=== PATIENT | male | born 1990 ===

== ENCOUNTER 2016-06-12 13:42 | Emergency (ER) | payer OTHER ==
[2016-06-12 14:16] VITALS: BP 117/76
--- NOTE | 2016-06-12 17:40 | Emergency Department Report ---
HPI - General Chief Complaint: Extremity Injury, Lower Time Seen by Provider: 06/12/16 17:30 - HPI HPI: 25-year-old male presents today with left foot and ankle pain and swelling 5 days. Patient states that he fell going Tears and sprained it. Describes his pain as 7 out of 10 constant, throbbing pain. He is unable to ambulate at this time. Denies numbness, weakness, paresthesias. Tried Goody powder and Epsom salts with some relief. Denies fever, chills, nausea, vomiting, chest pain, shortness of breath, abdominal pain. ED Past Medical Hx - Past Medical History Previous Medical History?: Yes Additional medical history: left ankle - Surgical History Past Surgical History?: No - Social History Smoking Status: Never Smoker Substance Use Type: Alcohol - Medications Home Medications: Home Medications Medication Instructions Recorded Confirmed Last Taken Type HYDROcodone/APAP 5-325 [Wiseman 1 each PO Q6HR PRN #20 tablet 06/12/16 Unknown Rx 5/325] Ibuprofen [Motrin 600 MG tab] 600 mg PO Q8H PRN #30 tablet 06/12/16 Unknown Rx ED Review of Systems ROS: Stated complaint: SWOLLEN LEFT ANKLE /FALL Other details as noted in HPI Constitutional: denies: chills, fever, malaise Eyes: denies: eye pain ENT: denies: ear pain, throat pain, congestion Respiratory: denies: cough, shortness of breath, wheezing Cardiovascular: denies: chest pain, palpitations Endocrine: no symptoms reported Gastrointestinal: denies: abdominal pain, nausea, vomiting Musculoskeletal: joint swelling, arthralgia Neurological: denies: headache, weakness, numbness, paresthesias Physical Exam - Physical Exam Vital Signs: Vital Signs 06/12/16 14:13 Temperature 98.1 F Pulse Rate 66 Respiratory 20 Rate Blood Pressure 117/76 O2 Sat by Pulse 96 Oximetry Physical Exam: GENERAL: The patient is well-developed and well-nourished. Patient is in NAD. HEAD: Normocephalic. Atraumatic. CHEST/LUNGS: Clear to auscultation throughout. HEART/CARDIOVASCULAR: Regular rate and rhythm. No murmurs, rubs or gallops. ABDOMEN: Abdomen is soft, nontender. Bowel sounds normoactive. No guarding or rebound tenderness. LEFT FOOT/ANKLE: Tenderness to palpation over the lateral aspect of left ankle. Positive for edema. No deformity or crepitus noted. Normal sensation. Peripheral pulses intact. Capillary refill less than 2 seconds. NEURO: Alert and oriented x 3. ED Course Vital Signs 06/12/16 14:13 Temperature 98.1 F Pulse Rate 66 Respiratory 20 Rate Blood Pressure 117/76 O2 Sat by Pulse 96 Oximetry ED Medical Decision Making - Lab Data Vital Signs 06/12/16 14:13 Temperature 98.1 F Pulse Rate 66 Respiratory 20 Rate Blood Pressure 117/76 O2 Sat by Pulse 96 Oximetry - Radiology Data Radiology results: report reviewed PROCEDURE: XR ANKLE 3 LT TECHNIQUE: LEFT ankle radiographs, AP, lateral, and oblique views. CPT 69779 HISTORY: Pain post fall. COMPARISON: No prior studies are available for comparison. FINDINGS: Fracture (s) and/or Dislocation(s): Subtle lucency through the distal fibula. Best seen on lateral view is a mildly displaced fracture through the posterior tibia. Alignment: Normal. Joint space(s): Medial clear space appears slightly widened. Suspect small joint effusion. Soft tissues: Moderate overlying soft tissue swelling. Bone mineralization: Normal. Foreign bodies: None. Calcaneal spurring: None. IMPRESSION: Mildly displaced distal fibular and posterior tibial posttraumatic fractures. Associated moderate overlying soft tissue swelling. Mild widening of the medial clear space, consider ligamentous injury. Consider MRI for further characterization if there is continued clinical concern and patient has no contraindication to MRI.. - Medical Decision Making 25-year-old male presents today with left foot and ankle pain and swelling 5 days post fall. His x-ray results revealed mildly displaced distal fibular and posterior tibial post traumatic fractures. Patient's foot will be put in a posterior ankle splint and he will be provided with a referral for orthopedic. Patient is in no acute distress at this time. She will be discharged home and is encouraged to follow up with a primary care provider. He will be sent home on Wiseman and ibuprofen and is encouraged to return to the emergency room for any worsening symptoms. Critical care attestation.: If time is entered above; I have spent that time in minutes in the direct care of this critically ill patient, excluding procedure time. ED Disposition Clinical Impression: Fracture of distal end of fibula Qualifiers: Encounter type: initial encounter Fracture type: closed Fracture morphology: unspecified fracture morphology Laterality: left Qualified Code(s): S82.832A - Other fracture of upper and lower end of left fibula, initial encounter for closed fracture Tibial fracture Qualifiers: Encounter type: initial encounter Tibia location: distal Fracture type: closed Fracture morphology: other fracture Laterality: left Qualified Code(s): S82.392A - Other fracture of lower end of left tibia, initial encounter for closed fracture Disposition: DISCHARGED TO HOME OR SELFCARE Is pt being admited?: No Does the pt Need Aspirin: No Condition: Stable Instructions: Ankle Fracture (ED), Leg Fracture (ED) Additional Instructions: Follow-up with primary care provider and orthopedic. Return to the emergency department if symptoms worsen. Prescriptions: HYDROcodone/APAP 5-325 [Wiseman 5/325] 1 each PO Q6HR PRN #20 tablet PRN Reason: Pain Ibuprofen [Motrin 600 MG tab] 600 mg PO Q8H PRN #30 tablet PRN Reason: Pain Referrals: PRIMARY MD SHAHRZAD [Primary Care Provider] - 3-5 Days CHRISTIAN DAVID MD [Staff Physician] - 3-5 Days Forms: Work/School Release Form(ED) Time of Disposition: 19:07
--- NOTE | 2016-06-12 18:48 | XRay Report ---
FINAL REPORT PROCEDURE: XR ANKLE 3 LT TECHNIQUE: LEFT ankle radiographs, AP, lateral, and oblique views. CPT 45092 HISTORY: Pain post fall. COMPARISON: No prior studies are available for comparison. FINDINGS: Fracture (s) and/or Dislocation(s): Subtle lucency through the distal fibula. Best seen on lateral view is a mildly displaced fracture through the posterior tibia. Alignment: Normal. Joint space(s): Medial clear space appears slightly widened. Suspect small joint effusion. Soft tissues: Moderate overlying soft tissue swelling. Bone mineralization: Normal. Foreign bodies: None. Calcaneal spurring: None. IMPRESSION: Mildly displaced distal fibular and posterior tibial posttraumatic fractures. Associated moderate overlying soft tissue swelling. Mild widening of the medial clear space, consider ligamentous injury. Consider MRI for further characterization if there is continued clinical concern and patient has no contraindication to MRI..
[2016-06-12] MEDS ORDERED: NORCO 5/325 PO ONE (19:08)
== END 2016-06-12 19:46 | disposition home or self-care (01) ==
LOC: ED 13:42
DX: S82.832A Other fracture of upper and lower end of left fibula, initial encounter for closed fracture (principal); S82.392A Other fracture of lower end of left tibia, initial encounter for closed fracture; W18.39XA Other fall on same level, initial encounter; Y93.89 Activity, other specified; Y99.8 Other external cause status; Y92.89 Other specified places as the place of occurrence of the external cause
CPT/HCPCS: 99283